=== PATIENT | female | born 1980 | race Two or more races ===

== ENCOUNTER 2024-01-20 06:39 | Emergency (ER) | payer OTHER ==
[~2024-01-20] VITALS: Ht 154.9 cm; Wt 75.0 kg
[2024-01-20 07:16] VITALS: BP 128/71; PULSE 67; RESP 16; TEMP 97.8; O2SAT 97
[2024-01-20] MEDS: KETOROLAC TROMETH 60MG/2ML VIAL IM ONE (07:33)
[2024-01-20] MEDS ORDERED: IBUP-1456 PO (07:53)
== END 2024-01-20 08:18 | disposition home or self-care (01) ==
LOC: EEVIPCON 06:39 → ER 06:39
DX: S83.8X1A Sprain of other specified parts of right knee, initial encounter (principal); W01.0XXA Fall on same level from slipping, tripping and stumbling without subsequent striking against object, initial encounter; Y93.89 Activity, other specified; Y92.89 Other specified places as the place of occurrence of the external cause; Y99.0 Civilian activity done for income or pay
CPT/HCPCS: 73562; 96372; 99283; J1885